=== PATIENT | male | born 1995 | race Two or more races ===

== ENCOUNTER 2019-05-20 19:33 | Emergency (ER) | payer MEDICAID ==
[~2019-05-20] VITALS: Ht 177.8 cm; Wt 136.0 kg
[~2019-05-20 19:33] MED LIST: NO HOME MEDS
--- NOTE | 2019-05-20 19:49 | NUR ---
[facility] CONTACTED. THEY WOULD LIKE TYLENOL, ASA LEVEL WELL CMP WITH LFT'S - IF TYLENOL LEVEL OR LFT'S ARE ELEVATED GIVE MUCOMYST.
[2019-05-20 20:05] LABS: BASOPHILS % (AUTO) 0.5 % (0-1); EOSINOPHILS # (AUTO) 0.3 X10'3 (0-0.9); EOSINOPHILS % (AUTO) 3.2 % (0-6); HEMATOCRIT 46.4 % (42.0-52.0); HEMOGLOBIN 16.2 g/dl (14.0-17.9); LYMPHOCYTES # (AUTO) 2.2 X10'3 (1.1-4.8); LYMPHOCYTES % (AUTO) 26.8 % (21-51); MEAN CORPUSCULAR HGB CONC 34.8 g/dL (33.0-36.5); MEAN CORPUSCULAR VOLUME 86.1 FL (78-98); MEAN PLATELET VOLUME 6.9 FL (7.4-10.4); MONOCYTES # (AUTO) 0.7 X10'3 (0-0.9); MONOCYTES % (AUTO) 7.9 % (2-12); NEUTROPHILS # (AUTO) 5.1 X10'3 (1.8-7.7); NEUTROPHILS % (AUTO) 61.6 % (42-75); PLATELET COUNT 340 X10'3 (140-440); RED BLOOD COUNT 5.39 X10'6 (4.70-6.10); RED CELL DISTRIBUTION WIDTH 12.9 % (11.5-14.5); WHITE BLOOD COUNT 8.3 X10'3 (4.5-11.0)
[2019-05-20 20:20] LABS: ALANINE AMINOTRANSFERASE 67 U/L (12-78); ALBUMIN 3.9 G/DL (3.4-5.0); ALBUMIN/GLOBULIN RATIO 0.9 (1.1-1.5); ALKALINE PHOSPHATASE 118 IU/L (46-116); ANION GAP 9 (8-16); ASPARTATE AMINO TRANSFERASE 32 U/L (10-37); BILIRUBIN,TOTAL 0.4 MG/DL (0.1-1.0); BLOOD UREA NITROGEN 11 MG/DL (7-18); BUN/CREATININE RATIO 12.4 (5.4-32.0); CALCIUM 9.1 MG/DL (8.5-10.1); CHLORIDE 104 MMOL/L (99-107); CREATININE 0.89 MG/DL (0.60-1.10); GLUCOSE 126 MG/DL (70-104); POTASSIUM 3.3 MMOL/L (3.5-5.1); SODIUM 141 MMOL/L (135-145); TOTAL CARBON DIOXIDE 27.6 MMOL/L (24-32); TOTAL PROTEIN 8.2 G/DL (6.4-8.2); eGFR > 90 ML/MIN
[2019-05-20 20:30] LABS: ETHANOL < 0.010 GM/DL (0.0-0.010)
[2019-05-20 20:33] LABS: ACETAMINOPHEN < 2.0 UG/ML (10-30)
--- NOTE | 2019-05-20 21:02 | NUR ---
Patient arrived to unit. Under no appearent distress. Will continue to monitor.
[2019-05-20 22:25] LABS: URINE AMPHETAMINE SCREEN NEGATIVE (Neg); URINE BARBITUATE SCREEN NEGATIVE (Neg); URINE BENZODIAZEPINES SCREEN NEGATIVE (Neg); URINE CANNABINOID SCREEN NEGATIVE (Neg); URINE COCAINE SCREEN NEGATIVE (Neg); URINE METHADONE SCREEN NEGATIVE (Neg); URINE OPIATE SCREEN POSITIVE (Neg); URINE PHENCYCLIDINE SCREEN NEGATIVE (Neg)
--- NOTE | 2019-05-20 23:18 | NUR ---
Patient awake in bed, conversing with mother who is at bedside. No signs of duress. Will continue to monitor.
--- NOTE | 2019-05-21 01:28 | NUR ---
Mom left bedside. Patient in bed attempting to fall asleep. No signs of duress. Will continue to monitor.
--- NOTE | 2019-05-21 03:28 | NUR ---
Patient laying in bed eyes closed, respirations even. No signs of duress. Will continue to monitor.
--- NOTE | 2019-05-21 05:33 | NUR ---
Patient laying in bed with eyes closed, respirations even. No signs of duress. Will continue to monitor.
[2019-05-21 06:10] VITALS: BP 143/83
--- NOTE | 2019-05-21 07:03 | NUR ---
Recieved report from KRYSTA RN. Received Pt in bed sleeping w/o distress.
--- NOTE | 2019-05-21 10:10 | NUR ---
Pt awoke for breakfast and was pleasant and cooperative. Returned to sleep after general assessment.
--- NOTE | 2019-05-21 13:23 | NUR ---
Pt calm and cooperative and has been visiting with his mother for past couple hours. He ate lunch and returned to resting and visiting. Pt denies SI and appears euthymic.
--- NOTE | 2019-05-21 14:12 | NUR ---
pt resting in bed
== END 2019-05-21 16:04 | disposition home or self-care (01) ==
LOC: ER 19:33
DX: T39.1X2A Poisoning by 4-Aminophenol derivatives, intentional self-harm, initial encounter (principal); R51 Headache; Y92.89 Other specified places as the place of occurrence of the external cause
CPT/HCPCS: 36415; 80053; 80305; 80320; 80329; 84443; 85025; 99284

== ENCOUNTER 2020-05-05 17:15 | Emergency (ER) | payer MEDICAID | END 2020-05-05 18:08 | disposition home or self-care (01) | LOC: ER 17:15 | DX: J06.9 Acute upper respiratory infection, unspecified (principal); R05 Cough; R43.8 Other disturbances of smell and taste; Z20.828 Contact with and (suspected) exposure to other viral communicable diseases | CPT/HCPCS: 36415; 87635; 99283 ==